=== PATIENT | male | born 1960 | race African-American/Black ===

== ENCOUNTER 2016-06-02 11:24 | Emergency (ER) | payer OTHER ==
[~2016-06-02] VITALS: Ht 182.9 cm; Wt 108.9 kg
[~2016-06-02 11:24] MED LIST: ACID REDUCER20 MG PO; ALAWAY10 ML; ASPIRIN81 M2 PO; BISACODYL SUPP10 MG RECTAL; BUTALB-APAP-CA1 EACH PO; CELEBREX 200 M200 MG PO; CENTRUM SILVER1 EAC2 PO; COLACE100 MG PO; DUONEB 2.5-0.5 M3 ML INH; FLEXERIL PO; FLONASE 0.05%50 MCG; FLUOXETINE HCL40 MG PO; GABAPENTIN 100100 MG PO; HYD; HYDROCODONE-AP1 EAC6 PO; HYDROXYZINE HCL25 M1 PO; IBUPROFEN 400400 M2 PO; KEPPRA 500 MG500 M1 PO; LAMICTAL100 MG PO; LISINOPRIL5 MG PO; LORATIDINE 10 M10 M1 PO; PHENERGAN 25 MG25 M1 PO; PREDNISONE 20 M20 MG PO; PROAIR HFA8.5 GM INH; ROBAFEN100 MG/5 M PO; SEROQUEL 50 MG50 MG PO; TESSALON PERLE100 MG PO; TRAZODONE HCL50 MG PO; TYLENOL325 MG PO; VENTOLIN HFA 1818 GM; [UNRECOGNIZED DRUG - OTHER]
[2016-06-02] MEDS ORDERED: ALBUTEROL NEB 0.083% INH (11:44)
[2016-06-02] MEDS ORDERED: BENTYL 20 MG TA20 M1 PO (11:45)
[2016-06-02] MEDS ORDERED: BELLADONNA ALK/1 TA1 PO (11:46)
[2016-06-02] MEDS ORDERED: PROTONIX40 M1 PO (11:48)
[2016-06-02] MEDS ORDERED: LIDOCAINE 22 %/30 GM TOP (11:49)
[2016-06-02] MEDS ORDERED: ROBAFEN-DM SYR118 ML PO (11:51)
[2016-06-02 12:46] LABS: ABSOLUTE NEUTROPHILS 3.9 thou/uL (1.4-8.2); BASOPHILS 0.8 % (0.0-2.0); EOSINOPHILS 11.7 % (0.0-3.0); HEMATOCRIT 43.5 % (42.0-52.0); HEMOGLOBIN 14.7 gm/dL (14.0-18.0); LYMPHOCYTES 18.3 % (24.0-44.0); MCH 30.4 pg (26.0-34.0); MCHC 33.8 g/dL (28.0-37.0); MCV 89.8 fL (80.0-100.0); MONOCYTES 7.9 % (1.0-8.0); PLATELET COUNT 295 thou/uL (150-400); POLYS 61.3 % (36.0-66.0); RBC 4.85 mil/uL (4.50-6.00); RDW 15.9 % (10.5-14.5); WBC 6.4 thou/uL (4.0-11.0)
[2016-06-02 12:48] LABS: MANUAL DIFF NO
[2016-06-02 12:50] LABS: CALCIUM 9.7 mg/dL (8.5-10.1); CREATININE 1.2 mg/dL (0.7-1.3); POTASSIUM 4.6 mmol/L (3.5-5.1)
[2016-06-02 14:05] VITALS: BP 129/85
[2016-06-02 14:38] LABS: URINE BILIRUBIN NEGATIVE (Negative); URINE BLOOD NEGATIVE (Negative); URINE COLOR YELLOW; URINE GLUCOSE-RANDOM* NEGATIVE (Negative); URINE KETONES NEGATIVE (Negative); URINE NITRITE NEGATIVE (Negative); URINE PROTEIN (DIPSTICK) NEGATIVE (Negative); URINE UROBILINOGEN 0.2 E.U./dl (0.2-1.0)
[2016-06-02] MEDS ORDERED: NORCO 5-325 TA1 EACH PO (14:53)
== END 2016-06-02 15:58 | disposition home or self-care (01) ==
LOC: ER 11:24
PROVIDERS: Nurse Practitioner Family
DX: K50.90 Crohn's disease, unspecified, without complications (principal); E11.9 Type 2 diabetes mellitus without complications; I10 Essential (primary) hypertension; F31.9 Bipolar disorder, unspecified; F41.9 Anxiety disorder, unspecified; K21.9 Gastro-esophageal reflux disease without esophagitis; J44.9 Chronic obstructive pulmonary disease, unspecified; Z88.8 Allergy status to other drugs, medicaments and biological substances; F17.210 Nicotine dependence, cigarettes, uncomplicated; F12.10 Cannabis abuse, uncomplicated

== ENCOUNTER 2016-09-27 13:41 | Emergency (ER) | payer OTHER ==
[~2016-09-27] VITALS: Ht 182.9 cm; Wt 99.8 kg
--- NOTE | ~2016-09-27 | EKG ---
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 09/28/16 1349 1408 07 Indio Calderón MD, FACC /EPI
[~2016-09-27 13:41] MED LIST changes: +ALBUTEROL NEB 0.083% INH; +BELLADONNA ALK/1 TA1 PO; +BENTYL 20 MG TA20 M1 PO; +LIDOCAINE 22 %/30 GM TOP; +NORCO 5-325 TA1 EACH PO; +PROTONIX40 M1 PO; +ROBAFEN-DM SYR118 ML PO
[2016-09-27 14:04] LABS: ABSOLUTE NEUTROPHILS 5.3 thou/uL (1.4-8.2); BASOPHILS 0.4 % (0.0-2.0); EOSINOPHILS 8.8 % (0.0-3.0); HEMATOCRIT 39.3 % (42.0-52.0); HEMOGLOBIN 13.3 gm/dL (14.0-18.0); LYMPHOCYTES 16.8 % (24.0-44.0); MCH 30.7 pg (26.0-34.0); MCHC 33.8 g/dL (28.0-37.0); MCV 90.9 fL (80.0-100.0); MONOCYTES 6.9 % (1.0-8.0); PLATELET COUNT 309 thou/uL (150-400); POLYS 67.1 % (36.0-66.0); RBC 4.32 mil/uL (4.50-6.00); RDW 16.5 % (10.5-14.5); WBC 7.9 thou/uL (4.0-11.0)
[2016-09-27 14:06] LABS: MANUAL DIFF NO
[2016-09-27 14:12] LABS: ANION GAP 7 mmol/L (7-16); BUN 13 mg/dL (7-18); CALCIUM 9.6 mg/dL (8.5-10.1); CHLORIDE 102 mmol/L (98-107); CO2 25 mmol/L (21-32); CREATININE 1.5 mg/dL (0.7-1.3); GLUCOSE 128 mg/dL (74-106); POTASSIUM 4.3 mmol/L (3.5-5.1); SODIUM 134 mmol/L (136-145)
[2016-09-27 14:21] LABS: ALBUMIN 3.7 g/dL (3.4-5.0); ALKALINE PHOSPHATASE 108 U/L (46-116); SGOT 15 U/L (15-37); SGPT 14 U/L (30-65); TOTAL BILIRUBIN 0.3 mg/dL (<0.1-1.0); TOTAL PROTEIN 8.7 g/dL (6.4-8.2); TROPONIN-I < 0.04 ng/mL (<0.04-0.07)
[2016-09-27 15:55] LABS: URINE BILIRUBIN NEGATIVE (Negative); URINE BLOOD NEGATIVE (Negative); URINE COLOR YELLOW; URINE GLUCOSE-RANDOM* NEGATIVE (Negative); URINE KETONES NEGATIVE (Negative); URINE LEUKOCYTES-REFLEX NEGATIVE (Negative); URINE PROTEIN (DIPSTICK) NEGATIVE (Negative); URINE UROBILINOGEN 0.2 E.U./dl (0.2-1.0)
[2016-09-27 17:20] VITALS: BP 141/89
== END 2016-09-27 20:04 ==
LOC: ER 13:41
PROVIDERS: Physician Assistant
DX: S00.83XA Contusion of other part of head, initial encounter (principal); G89.29 Other chronic pain; R10.9 Unspecified abdominal pain; E11.9 Type 2 diabetes mellitus without complications; I10 Essential (primary) hypertension; F31.9 Bipolar disorder, unspecified; K50.90 Crohn's disease, unspecified, without complications; F41.9 Anxiety disorder, unspecified; J44.9 Chronic obstructive pulmonary disease, unspecified; K21.9 Gastro-esophageal reflux disease without esophagitis; F17.210 Nicotine dependence, cigarettes, uncomplicated; F10.99 Alcohol use, unspecified with unspecified alcohol-induced disorder; Z86.018 Personal history of other benign neoplasm; Z88.8 Allergy status to other drugs, medicaments and biological substances

== ENCOUNTER 2016-11-10 00:32 | Observation (INO) | payer OTHER ==
[~2016-11-10] VITALS: Ht 182.9 cm; Wt 112.9 kg
--- NOTE | ~2016-11-10 | EKG ---
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
[2016-11-10 00:33] VITALS: BP 96/64
[2016-11-10] MEDS ORDERED: CETIRIZINE HCL5 MG PO (00:58)
[2016-11-10] MEDS ORDERED: PREDNISONE 10 M10 MG (01:01)
[2016-11-10] MEDS ORDERED: SINGULAIR 10 MG10 M1 PO (01:03)
[2016-11-10] MEDS ORDERED: LOPERAMIDE 2 MG2 M1 PO (01:04)
[2016-11-10] MEDS ORDERED: ROBAFEN DM CGH118 ML PO (01:06)
[2016-11-10] MEDS ORDERED: GAS RELIEF 8080 MG PO (01:07)
[2016-11-10] MEDS ORDERED: HYDROCODONE-AP1 EAC6 PO (01:09)
[2016-11-10 01:10] LABS: HEMATOCRIT 32.8 % (42.0-52.0); HEMOGLOBIN 11.1 gm/dL (14.0-18.0); MCH 30.8 pg (26.0-34.0); MCHC 33.9 g/dL (28.0-37.0); MCV 90.7 fL (80.0-100.0); PLATELET COUNT 294 thou/uL (150-400); RBC 3.62 mil/uL (4.50-6.00); RDW 16.7 % (10.5-14.5)
[2016-11-10 01:11] LABS: MANUAL DIFF YES
[2016-11-10 01:13] LABS: ANION GAP 5 mmol/L (7-16); BUN 22 mg/dL (7-18); CALCIUM 8.7 mg/dL (8.5-10.1); CHLORIDE 102 mmol/L (98-107); CO2 28 mmol/L (21-32); CREATININE 1.5 mg/dL (0.7-1.3); GLUCOSE 137 mg/dL (74-106); POTASSIUM 4.5 mmol/L (3.5-5.1); SODIUM 135 mmol/L (136-145)
[2016-11-10 01:22] LABS: ALBUMIN 3.1 g/dL (3.4-5.0); ALKALINE PHOSPHATASE 77 U/L (46-116); SGOT 21 U/L (15-37); SGPT 36 U/L (30-65); TOTAL BILIRUBIN 0.1 mg/dL (<0.1-1.0); TOTAL PROTEIN 6.9 g/dL (6.4-8.2); TROPONIN-I < 0.04 ng/mL (<0.04-0.07)
[2016-11-10 01:37] LABS: ABSOLUTE NEUTROPHILS 8.8 thou/uL (1.4-8.2); ANISOCYTOSIS SLIGHT; LARGE PLATELETS RARE; NUCLEATED RBCS 1 /100WBC; TOTAL CELL COUNT 100
[2016-11-10 02:53] VITALS: BP 96/54
[2016-11-10 03:03] VITALS: BP 104/55
[2016-11-10 03:45] VITALS: BP 141/96
[2016-11-10 07:16] VITALS: BP 103/59
[2016-11-10 20:00] VITALS: BP 132/70
[2016-11-11 04:00] VITALS: BP 104/57
[2016-11-11 08:10] VITALS: BP 114/79
== END 2016-11-11 16:14 ==
LOC: ER 00:32 → EROBS 02:43 → 4E 02:43
PROVIDERS: Emergency Medicine
DX: R10.84 Generalized abdominal pain (principal); G89.29 Other chronic pain; F31.9 Bipolar disorder, unspecified; F41.9 Anxiety disorder, unspecified; J44.9 Chronic obstructive pulmonary disease, unspecified; E11.22 Type 2 diabetes mellitus with diabetic chronic kidney disease; I12.9 Hypertensive chronic kidney disease with stage 1 through stage 4 chronic kidney disease, or unspecified chronic kidney disease; N18.3 Chronic kidney disease, stage 3 (moderate); K21.9 Gastro-esophageal reflux disease without esophagitis; F17.210 Nicotine dependence, cigarettes, uncomplicated; Z98.890 Other specified postprocedural states

== ENCOUNTER 2017-09-13 10:58 | Emergency (ER) | payer OTHER ==
[~2017-09-13] VITALS: Ht 182.9 cm; Wt 95.3 kg
[~2017-09-13 10:58] MED LIST changes: +CETIRIZINE HCL5 MG PO; +FLAGYL500 MG PO; +GAS RELIEF 8080 MG PO; +LOPERAMIDE 2 MG2 M1 PO; +ONDANSETRON HCL4 M2 PO; +PREDNISONE 10 M10 MG; +ROBAFEN DM CGH118 ML PO; +SINGULAIR 10 MG10 M1 PO
[2017-09-13] MEDS ORDERED: AMLODIPINE BESY10 MG PO (11:12)
[2017-09-13] MEDS ORDERED: QUETIAPINE FUM400 M1 PO (11:26)
[2017-09-13] MEDS ORDERED: MIRALAX17 GM PO (11:29)
[2017-09-13] MEDS ORDERED: OMEPRAZOLE20 MG PO (11:29)
[2017-09-13] MEDS ORDERED: LIALDA1.2 GM PO (11:32)
[2017-09-13] MEDS ORDERED: BENADRYL25 MG PO (11:37)
[2017-09-13] MEDS ORDERED: ONDANSETRON HCL4 M2 PO (11:40)
[2017-09-13] MEDS ORDERED: PROAIR HFA8.5 GM (11:41)
[2017-09-13] MEDS ORDERED: SILTUSSIN DM C118 ML PO (11:43)
[2017-09-13] MEDS ORDERED: HUMIRA40 MG/0.8 SUBQ (11:44)
[2017-09-13] MEDS ORDERED: PERCOCET PO (11:45)
[2017-09-13] MEDS ORDERED: BISACODYL SUPP10 MG RECTAL (11:45)
[2017-09-13] MEDS ORDERED: NORCO 5-325 TA1 EACH PO (12:18)
[2017-09-13] MEDS ORDERED: VOLTAREN GEL 1100 G2 TOP (12:18)
[2017-09-13] MEDS ORDERED: PREDNISONE 20 M20 MG PO (12:22)
== END 2017-09-13 13:37 | disposition home or self-care (01) ==
LOC: ER 10:58
DX: M25.561 Pain in right knee (principal); N40.0 Benign prostatic hyperplasia without lower urinary tract symptoms; F41.9 Anxiety disorder, unspecified; J44.9 Chronic obstructive pulmonary disease, unspecified; I12.9 Hypertensive chronic kidney disease with stage 1 through stage 4 chronic kidney disease, or unspecified chronic kidney disease; E11.22 Type 2 diabetes mellitus with diabetic chronic kidney disease; N18.3 Chronic kidney disease, stage 3 (moderate); K21.9 Gastro-esophageal reflux disease without esophagitis; F31.9 Bipolar disorder, unspecified; K50.90 Crohn's disease, unspecified, without complications; F17.210 Nicotine dependence, cigarettes, uncomplicated; Z91.011 Allergy to milk products; Z88.8 Allergy status to other drugs, medicaments and biological substances

== ENCOUNTER 2017-09-21 23:22 | Emergency (ER) | payer OTHER ==
[~2017-09-21] VITALS: Ht 182.9 cm; Wt 95.3 kg
--- NOTE | ~2017-09-21 | EKG ---
[address] [place] [address] ELECTROCARDIOGRAM REPORT Name: EVA GREENWOOD Room #: DEP [facility]#: [id number] Admission: 09/21/17 Attend Phys: Discharge: 09/22/17 Date of : 56 Report #: [id number] THIS REPORT FOR: //name// [facility] ED Test Date: 2017-09-22 Test Time: 01:31:25 Pat Name: EVA GREENWOOD Department: Room: Gender: Die Engraver: Yung ZULETA : 1960 Requested By: Madi Pham Order Number: [id number] MD: Indio Calderón Measurements Intervals [place] Rate: 53 P: -1 [place]: 147 QRS: 13 QRSD: 102 T: 46 QT: 458 QTc: 430 Interpretive Statements Sinus rhythm Nonspecific ST segment abnormality Compared to ECG 01/22/2017 00:38:33 No significant change was found Electronically Signed On 09-22-2017 8:27:15 CDT by Indio Calderón [email or web address] <ELECTRONICALLY SIGNED> By: Indio Calderón MD, [facility] 09/22/17 0827 D: 08/130 013 Indio Calderón MD, FACC /EPI
[~2017-09-21 23:22] MED LIST changes: +AMLODIPINE BESY10 MG PO; +BENADRYL25 MG PO; +HUMIRA40 MG/0.8 SUBQ; +LIALDA1.2 GM PO; +MIRALAX17 GM PO; +OMEPRAZOLE20 MG PO; +PERCOCET PO; +PROAIR HFA8.5 GM; +QUETIAPINE FUM400 M1 PO; +SILTUSSIN DM C118 ML PO; +VOLTAREN GEL 1100 G2 TOP
[2017-09-22 00:18] LABS: URINE BILIRUBIN NEGATIVE (Negative); URINE BLOOD NEGATIVE (Negative); URINE CLARITY CLEAR; URINE COLOR YELLOW; URINE GLUCOSE-RANDOM* NEGATIVE (Negative); URINE KETONES NEGATIVE (Negative); URINE LEUKOCYTES-REFLEX NEGATIVE (Negative); URINE NITRITE-REFLEX NEGATIVE (Negative); URINE PROTEIN (DIPSTICK) NEGATIVE (Negative); URINE SPECIFIC GRAVITY <= 1.005 (1.005-1.035); URINE UROBILINOGEN 0.2 E.U./dl (0.2-1.0)
[2017-09-22 00:27] LABS: AMP/METHAMP Negative (Negative); BARBITURATES Negative (Negative); BENZODIAZEPINES Negative (Negative); COCAINE Negative (Negative); METHADONE Negative (Negative); OPIATES Negative (Negative); PCP Negative (Negative)
[2017-09-22 01:35] LABS: ABSOLUTE NEUTROPHILS 5.2 thou/uL (1.4-8.2); BASOPHILS 0.2 % (0.0-2.0); EOSINOPHILS 1.7 % (0.0-3.0); HEMATOCRIT 34.7 % (42.0-52.0); HEMOGLOBIN 11.8 gm/dL (14.0-18.0); LYMPHOCYTES 30.3 % (24.0-44.0); MCH 30.3 pg (26.0-34.0); MCHC 34.2 g/dL (28.0-37.0); MCV 88.8 fL (80.0-100.0); MONOCYTES 11.7 % (1.0-8.0); PLATELET COUNT 263 thou/uL (150-400); POLYS 56.1 % (36.0-66.0); RDW 18.7 % (10.5-14.5); WBC 9.3 thou/uL (4.0-11.0)
[2017-09-22 01:45] LABS: ANION GAP 9 mmol/L (7-16); BUN 15 mg/dL (7-18); CALCIUM 8.2 mg/dL (8.5-10.1); CHLORIDE 104 mmol/L (98-107); CO2 25 mmol/L (21-32); CREATININE 1.2 mg/dL (0.7-1.3); GLUCOSE 108 mg/dL (74-106); POTASSIUM 3.3 mmol/L (3.5-5.1); SODIUM 138 mmol/L (136-145)
[2017-09-22 01:54] LABS: ALBUMIN 3.1 g/dL (3.4-5.0); LIPASE 159 U/L (73-393); SGOT 18 U/L (15-37); SGPT 22 U/L (30-65); TOTAL BILIRUBIN 0.2 mg/dL (<0.1-1.0); TOTAL PROTEIN 6.9 g/dL (6.4-8.2)
[2017-09-22 02:02] LABS: TROPONIN-I <0.06 ng/mL (<0.06)
[2017-09-22] MEDS ORDERED: ZOFRAN ODT8 MG PO (02:33)
[2017-09-22] MEDS ORDERED: NORCO 5-325 TA1 EACH PO (02:33)
== END 2017-09-22 02:59 | disposition home or self-care (01) ==
LOC: ER 23:22
PROVIDERS: Emergency Medicine
DX: K50.90 Crohn's disease, unspecified, without complications (principal); K59.00 Constipation, unspecified; E11.9 Type 2 diabetes mellitus without complications; I10 Essential (primary) hypertension; N40.0 Benign prostatic hyperplasia without lower urinary tract symptoms; I12.9 Hypertensive chronic kidney disease with stage 1 through stage 4 chronic kidney disease, or unspecified chronic kidney disease; E11.22 Type 2 diabetes mellitus with diabetic chronic kidney disease; N18.3 Chronic kidney disease, stage 3 (moderate); J44.9 Chronic obstructive pulmonary disease, unspecified; K21.9 Gastro-esophageal reflux disease without esophagitis; F31.9 Bipolar disorder, unspecified; F41.9 Anxiety disorder, unspecified; F17.210 Nicotine dependence, cigarettes, uncomplicated; Z91.011 Allergy to milk products; Z88.8 Allergy status to other drugs, medicaments and biological substances; R11.2 Nausea with vomiting, unspecified

== ENCOUNTER 2017-11-12 11:11 | Emergency (ER) | payer OTHER ==
[~2017-11-12] VITALS: Ht 182.9 cm; Wt 90.7 kg
[~2017-11-12 11:11] MED LIST changes: +ZOFRAN ODT8 MG PO
[2017-11-12] MEDS ORDERED: IRON325 PO (11:47)
[2017-11-12] MEDS ORDERED: FLONASE 0.05%50 MCG NASAL (11:48)
[2017-11-12] MEDS ORDERED: PROTONIX40 M1 PO (11:49)
[2017-11-12] MEDS ORDERED: IBUPROFEN 400400 M2 PO (11:50)
[2017-11-12] MEDS ORDERED: TRAZODONE 150150 M1 PO (11:52)
[2017-11-12] MEDS ORDERED: METAMUCIL FIBE3.4 GM PO (11:53)
[2017-11-12] MEDS ORDERED: SILTUSSIN100 MG/5 M PO (11:58)
[2017-11-12] MEDS ORDERED: PERCOCET PO (12:23)
== END 2017-11-12 13:43 | disposition home or self-care (01) ==
LOC: ER 11:11
DX: S83.91XA Sprain of unspecified site of right knee, initial encounter (principal); Z86.19 Personal history of other infectious and parasitic diseases; N40.0 Benign prostatic hyperplasia without lower urinary tract symptoms; I12.9 Hypertensive chronic kidney disease with stage 1 through stage 4 chronic kidney disease, or unspecified chronic kidney disease; E11.22 Type 2 diabetes mellitus with diabetic chronic kidney disease; N18.9 Chronic kidney disease, unspecified; J44.9 Chronic obstructive pulmonary disease, unspecified; F41.9 Anxiety disorder, unspecified; F31.9 Bipolar disorder, unspecified; K21.9 Gastro-esophageal reflux disease without esophagitis; F17.210 Nicotine dependence, cigarettes, uncomplicated; Z88.8 Allergy status to other drugs, medicaments and biological substances; X58.XXXA Exposure to other specified factors, initial encounter; Y93.89 Activity, other specified; Y92.89 Other specified places as the place of occurrence of the external cause; Y99.8 Other external cause status

== ENCOUNTER 2018-01-07 16:17 | Emergency (ER) | payer OTHER ==
[~2018-01-07] VITALS: Ht 182.9 cm; Wt 90.7 kg
[~2018-01-07 16:17] MED LIST changes: +FLONASE 0.05%50 MCG NASAL; +IRON325 PO; +METAMUCIL FIBE3.4 GM PO; +SILTUSSIN100 MG/5 M PO; +TRAZODONE 150150 M1 PO
[2018-01-07 17:54] LABS: URINE BILIRUBIN NEGATIVE (Negative); URINE BLOOD NEGATIVE (Negative); URINE CLARITY CLEAR; URINE COLOR YELLOW; URINE GLUCOSE-RANDOM* NEGATIVE (Negative); URINE KETONES NEGATIVE (Negative); URINE LEUKOCYTES NEGATIVE (Negative); URINE NITRITE NEGATIVE (Negative); URINE PROTEIN (DIPSTICK) NEGATIVE (Negative); URINE UROBILINOGEN 0.2 E.U./dl (0.2-1.0)
[2018-01-07 17:57] LABS: BASOPHILS 0.6 % (0.0-2.0); EOSINOPHILS 7.6 % (0.0-3.0); HEMATOCRIT 32.3 % (42.0-52.0); HEMOGLOBIN 11.1 gm/dL (14.0-18.0); LYMPHOCYTES 25.4 % (24.0-44.0); MCH 29.7 pg (26.0-34.0); MCHC 34.4 g/dL (28.0-37.0); MCV 86.3 fL (80.0-100.0); MONOCYTES 5.8 % (1.0-8.0); PLATELET COUNT 299 thou/uL (150-400); POLYS 60.6 % (36.0-66.0); RBC 3.74 mil/uL (4.50-6.00); RDW 18.9 % (10.5-14.5); WBC 6.5 thou/uL (4.0-11.0)
[2018-01-07 18:02] LABS: CALCIUM 9.5 mg/dL (8.5-10.1); CREATININE 1.5 mg/dL (0.7-1.3); POTASSIUM 4.1 mmol/L (3.5-5.1)
[2018-01-07 18:07] LABS: APTT 29.6 Seconds (24.5-32.8); PROTIME 10.2 Seconds (9.3-11.4)
[2018-01-07 18:08] LABS: ALBUMIN 3.6 g/dL (3.4-5.0); TOTAL BILIRUBIN 0.3 mg/dL (<0.1-1.0); TOTAL PROTEIN 8.6 g/dL (6.4-8.2)
[2018-01-07 19:59] VITALS: BP 119/74
== END 2018-01-07 22:19 | disposition home or self-care (01) ==
LOC: ER 16:17
PROVIDERS: Physician Assistant
DX: M25.561 Pain in right knee (principal); F11.23 Opioid dependence with withdrawal; R10.84 Generalized abdominal pain; M25.461 Effusion, right knee; F17.210 Nicotine dependence, cigarettes, uncomplicated; K50.90 Crohn's disease, unspecified, without complications; F31.9 Bipolar disorder, unspecified; I12.9 Hypertensive chronic kidney disease with stage 1 through stage 4 chronic kidney disease, or unspecified chronic kidney disease; E11.22 Type 2 diabetes mellitus with diabetic chronic kidney disease; N18.3 Chronic kidney disease, stage 3 (moderate); F41.9 Anxiety disorder, unspecified; J44.9 Chronic obstructive pulmonary disease, unspecified; K21.9 Gastro-esophageal reflux disease without esophagitis; E78.5 Hyperlipidemia, unspecified; Z88.8 Allergy status to other drugs, medicaments and biological substances

== ENCOUNTER 2018-02-08 19:48 | Emergency (ER) | payer OTHER ==
[~2018-02-08] VITALS: Ht 182.9 cm; Wt 90.7 kg
[2018-02-08 20:16] LABS: ABSOLUTE NEUTROPHILS 6.5 thou/uL (1.4-8.2); BASOPHILS 0.8 % (0.0-2.0); EOSINOPHILS 8.3 % (0.0-3.0); HEMATOCRIT 22.4 % (42.0-52.0); HEMOGLOBIN 7.7 gm/dL (14.0-18.0); LYMPHOCYTES 20.1 % (24.0-44.0); MCH 31.2 pg (26.0-34.0); MCHC 34.6 g/dL (28.0-37.0); MCV 90.4 fL (80.0-100.0); MONOCYTES 7.5 % (1.0-8.0); PLATELET COUNT 622 thou/uL (150-400); POLYS 63.3 % (36.0-66.0); RBC 2.48 mil/uL (4.50-6.00); RDW 18.8 % (10.5-14.5); WBC 10.3 thou/uL (4.0-11.0)
[2018-02-08 20:20] LABS: URINE CLARITY CLEAR; URINE COLOR YELLOW
[2018-02-08 20:21] LABS: URINE BILIRUBIN NEGATIVE (Negative); URINE BLOOD NEGATIVE (Negative); URINE GLUCOSE-RANDOM* NEGATIVE (Negative); URINE KETONES NEGATIVE (Negative); URINE LEUKOCYTES-REFLEX NEGATIVE (Negative); URINE NITRITE-REFLEX NEGATIVE (Negative); URINE PROTEIN (DIPSTICK) NEGATIVE (Negative); URINE UROBILINOGEN 0.2 E.U./dl (0.2-1.0)
[2018-02-08 20:29] LABS: CALCIUM 9.5 mg/dL (8.5-10.1); CREATININE 1.4 mg/dL (0.7-1.3); POTASSIUM 3.7 mmol/L (3.5-5.1)
[2018-02-08 20:33] LABS: ALBUMIN 3.1 g/dL (3.4-5.0); TOTAL BILIRUBIN 0.2 mg/dL (<0.1-1.0)
[2018-02-08 20:52] LABS: ANISOCYTOSIS 3+
[2018-02-08 20:53] LABS: HYPOCHROMASIA SLIGHT; POLYCHROMASIA SLIGHT
[2018-02-08] MEDS ORDERED: SENNA8.6 MG PO (21:38)
[2018-02-08] MEDS ORDERED: ZOFRAN ODT4 MG PO (21:40)
[2018-02-08 22:48] VITALS: BP 116/51
== END 2018-02-08 22:50 | disposition home or self-care (01) ==
LOC: ER 19:48
PROVIDERS: Physician Assistant
DX: K59.00 Constipation, unspecified (principal); R11.0 Nausea; E11.9 Type 2 diabetes mellitus without complications; I12.9 Hypertensive chronic kidney disease with stage 1 through stage 4 chronic kidney disease, or unspecified chronic kidney disease; E11.22 Type 2 diabetes mellitus with diabetic chronic kidney disease; N18.3 Chronic kidney disease, stage 3 (moderate); N40.0 Benign prostatic hyperplasia without lower urinary tract symptoms; F41.9 Anxiety disorder, unspecified; J44.9 Chronic obstructive pulmonary disease, unspecified; E78.5 Hyperlipidemia, unspecified; F31.9 Bipolar disorder, unspecified; F17.210 Nicotine dependence, cigarettes, uncomplicated; Z88.8 Allergy status to other drugs, medicaments and biological substances

== ENCOUNTER 2018-02-20 15:04 | Emergency (ER) | payer OTHER ==
[~2018-02-20] VITALS: Ht 177.8 cm; Wt 79.4 kg
[~2018-02-20 15:04] MED LIST changes: +SENNA8.6 MG PO; +ZOFRAN ODT4 MG PO
[2018-02-20 16:06] LABS: ABSOLUTE NEUTROPHILS 3.5 thou/uL (1.4-8.2); BASOPHILS 0.5 % (0.0-2.0); EOSINOPHILS 10.4 % (0.0-3.0); HEMATOCRIT 27.8 % (42.0-52.0); HEMOGLOBIN 9.3 gm/dL (14.0-18.0); LYMPHOCYTES 23.6 % (24.0-44.0); MCH 31.1 pg (26.0-34.0); MCHC 33.6 g/dL (28.0-37.0); MCV 92.7 fL (80.0-100.0); MONOCYTES 8.8 % (1.0-8.0); PLATELET COUNT 512 thou/uL (150-400); POLYS 56.7 % (36.0-66.0); RDW 18.9 % (10.5-14.5); WBC 6.3 thou/uL (4.0-11.0)
[2018-02-20 16:12] LABS: ANION GAP 9 mmol/L (7-16); BUN 16 mg/dL (7-18); CALCIUM 9.2 mg/dL (8.5-10.1); CHLORIDE 103 mmol/L (98-107); CO2 26 mmol/L (21-32); CREATININE 1.2 mg/dL (0.7-1.3); GLUCOSE 105 mg/dL (74-106); POTASSIUM 3.7 mmol/L (3.5-5.1); SODIUM 138 mmol/L (136-145)
[2018-02-20 16:17] LABS: ALBUMIN 3.2 g/dL (3.4-5.0); SALICYLATE 7.1 mg/dL (2.8-20.0); SGOT 14 U/L (15-37); SGPT 15 U/L (30-65); TOTAL BILIRUBIN 0.1 mg/dL (<0.1-1.0)
[2018-02-20 17:07] LABS: AMP/METHAMP Negative (Negative); BARBITURATES Negative (Negative); BENZODIAZEPINES Negative (Negative); COCAINE Negative (Negative); METHADONE Negative (Negative); OPIATES Negative (Negative); PCP Negative (Negative)
[2018-02-20 17:08] LABS: URINE CLARITY CLEAR; URINE COLOR YELLOW; URINE GLUCOSE-RANDOM* NEGATIVE (Negative); URINE PROTEIN (DIPSTICK) NEGATIVE (Negative); URINE SPECIFIC GRAVITY > 1.030 (1.005-1.035)
[2018-02-20 17:09] LABS: URINE BILIRUBIN NEGATIVE (Negative); URINE BLOOD NEGATIVE (Negative); URINE KETONES NEGATIVE (Negative); URINE LEUKOCYTES NEGATIVE (Negative); URINE NITRITE NEGATIVE (Negative); URINE UROBILINOGEN 0.2 E.U./dl (0.2-1.0)
[2018-02-20 20:27] VITALS: BP 115/77
== END 2018-02-20 20:30 ==
LOC: ER 15:04
PROVIDERS: Physician Assistant
DX: F31.9 Bipolar disorder, unspecified (principal); F17.210 Nicotine dependence, cigarettes, uncomplicated; E11.22 Type 2 diabetes mellitus with diabetic chronic kidney disease; I12.9 Hypertensive chronic kidney disease with stage 1 through stage 4 chronic kidney disease, or unspecified chronic kidney disease; N18.3 Chronic kidney disease, stage 3 (moderate); K50.90 Crohn's disease, unspecified, without complications; F41.9 Anxiety disorder, unspecified; J44.9 Chronic obstructive pulmonary disease, unspecified; K21.9 Gastro-esophageal reflux disease without esophagitis; E78.5 Hyperlipidemia, unspecified; Z88.8 Allergy status to other drugs, medicaments and biological substances

== ENCOUNTER 2018-04-05 19:20 | Emergency (ER) | payer OTHER ==
[~2018-04-05] VITALS: Ht 182.9 cm; Wt 90.7 kg
[2018-04-05 19:53] LABS: ABSOLUTE NEUTROPHILS 6.3 thou/uL (1.4-8.2); BASOPHILS 0.8 % (0.0-2.0); EOSINOPHILS 5.4 % (0.0-3.0); HEMATOCRIT 35.6 % (42.0-52.0); HEMOGLOBIN 11.8 gm/dL (14.0-18.0); LYMPHOCYTES 17.3 % (24.0-44.0); MCH 29.8 pg (26.0-34.0); MCHC 33.2 g/dL (28.0-37.0); MCV 89.9 fL (80.0-100.0); MONOCYTES 6.7 % (1.0-8.0); PLATELET COUNT 420 thou/uL (150-400); POLYS 69.8 % (36.0-66.0); RBC 3.96 mil/uL (4.50-6.00); RDW 15.9 % (10.5-14.5)
[2018-04-05 20:01] LABS: CALCIUM 10.3 mg/dL (8.5-10.1); CREATININE 1.2 mg/dL (0.7-1.3); POTASSIUM 3.7 mmol/L (3.5-5.1)
[2018-04-05 20:07] LABS: ALBUMIN 3.7 g/dL (3.4-5.0); TOTAL BILIRUBIN 0.2 mg/dL (<0.1-1.0); TOTAL PROTEIN 9.1 g/dL (6.4-8.2)
[2018-04-05 20:49] LABS: URINE BILIRUBIN NEGATIVE (Negative); URINE BLOOD NEGATIVE (Negative); URINE CLARITY CLEAR; URINE COLOR YELLOW; URINE GLUCOSE-RANDOM* NEGATIVE (Negative); URINE KETONES NEGATIVE (Negative); URINE LEUKOCYTES-REFLEX NEGATIVE (Negative); URINE NITRITE-REFLEX NEGATIVE (Negative); URINE PROTEIN (DIPSTICK) NEGATIVE (Negative); URINE SPECIFIC GRAVITY 1.015 (1.005-1.035); URINE UROBILINOGEN 0.2 E.U./dl (0.2-1.0)
[2018-04-05 23:45] VITALS: BP 131/70
== END 2018-04-05 23:45 | disposition home or self-care (01) ==
LOC: ER 19:20
PROVIDERS: Emergency Medicine
DX: R10.30 Lower abdominal pain, unspecified (principal); R19.7 Diarrhea, unspecified; T84.84XA Pain due to internal orthopedic prosthetic devices, implants and grafts, initial encounter; M25.561 Pain in right knee; G89.29 Other chronic pain; Y83.8 Other surgical procedures as the cause of abnormal reaction of the patient, or of later complication, without mention of misadventure at the time of the procedure; Y92.89 Other specified places as the place of occurrence of the external cause